=== PATIENT | female | born 1995 | race Asian ===

== ENCOUNTER 2025-08-04 09:45 | Emergency (ER) | payer OTHER ==
[~2025-08-04] VITALS: Ht 162.6 cm; Wt 54.4 kg
[2025-08-04] MEDS ORDERED: KETOROLAC TROMETHAMINE 60 MG VIAL IM ONE (12:15)
[2025-08-04] MEDS ORDERED: DEXAMETHASONE SODIUM PHOSPHATE 4 MG/ML VIAL IM ONE (12:15)
[2025-08-04 15:20] LABS: BASO % 0.9 % (0.1-1.2); EOS # 0.02 (0.04-0.54); EOS % 0.4 % (0.7-7.0); LYMPH # 1.76 (1.18-3.74); LYMPH % 31.0 % (19.3-53.1); MEAN PLATELET VOLUME 9.20 fl (9.4-12.4); MONO # 0.33 (0.24-0.82); MONO % 5.8 % (4.7-12.5); NEUT # 3.49 (1.56-6.13); NEUT % 61.5 % (34.0-71.1); RED CELL DISTRIBUTION WIDTH 12.5 % (11.6-14.4)
[2025-08-04 15:24] LABS: ERYTHROCYTE SEDIMENTATION RATE 11 mm/hr (0-20)
[2025-08-04 15:28] LABS: D DIMER 0.39 MG/L
[2025-08-04 15:32] LABS: ALT/SGPT 19 U/L (12-78); AST/SGOT 9 U/L (15-37); BILIRUBIN TOTAL 0.46 mg/dL (0.3-1.2); BUN CREA RATIO 27 (7.0-25.0); CREATININE SERUM 0.66 mg/dL (0.55-1.02); GFR 105.15; GLOBULINA 3.9 G/DL (2.4-3.5); GLUCOSE FASTING 85 mg/dL (65-100); OSMOLALITY SERUM 279 MOSM/KG (275-295)
== END 2025-08-04 16:59 | disposition home or self-care (01) ==
LOC: ER 09:45
DX: R60.0 Localized edema (principal)
CPT/HCPCS: 36415; 73590; 96372; 99283; J1100; J1885